=== PATIENT | male | born 1955 | race Caucasian/White ===

== ENCOUNTER 2017-11-26 14:01 | Inpatient (IN) | payer MEDICARE, BC ==
[2017-11-26 15:17] LABS: POTASSIUM 4.6 mmol/L (3.5-5.1)
[2017-11-26] MEDS ORDERED: PROPOFOL 20 ML (17:33)
[2017-11-26] MEDS ORDERED: LIDOCAINE 2% (SDV) 5 ML INJ (17:33)
[2017-11-26] MEDS ORDERED: LIDOCAINE 2% (MDV) 20 ML INJ (17:34)
[2017-11-26] MEDS ORDERED: POLYMYXIN/BACITRACIN 1L IRRIG (17:34)
[2017-11-26] MEDS ORDERED: CEFAZOLIN 1 GM INJ (18:03)
[2017-11-26] MEDS: BUPIVACAINE 0.5% (SDV) 30 ML INJ (18:17)
[2017-11-26 19:24] LABS: HEMATOCRIT 30.1 % (42.0-52.0); HEMOGLOBIN 9.6 g/dl (14.0-18.0)
[2017-11-26] MEDS ORDERED: EPHEDrine SULFATE 50 MG/5 ML SYG IV (19:30)
[2017-11-26] MEDS ORDERED: FENTAnyl 50 MCG/ML VIAL IV ×3 (19:30)
[2017-11-26] MEDS ORDERED: ONDANSETRON 4 MG INJ IV ×2 (19:30→21:00)
[2017-11-26] MEDS ORDERED: MEPERIDINE 25 MG INJ IV (19:30)
[2017-11-26] MEDS ORDERED: LABETALOL HCL 20MG INJ IV (19:30)
[2017-11-26] MEDS ORDERED: DIPHENHYDRAMINE 50 MG INJ IV (19:30)
[2017-11-26] MEDS ORDERED: MIDAZOLAM 1 MG/ML 2 ML INJ IV (19:30)
[2017-11-26] MEDS ORDERED: OXYCODONE/ACETAMINOPHEN (5/325) TAB PO ×2 (19:30)
[2017-11-26] MEDS ORDERED: METOCLOPRAMIDE 10 MG INJ IV (19:30)
[2017-11-26] MEDS: hydrALAzine 20 MG INJ IV (20:09)
[2017-11-26] MEDS ORDERED: HYDROCODONE/APAP (10/325) TAB PO (20:30)
[2017-11-26] MEDS ORDERED: ACETAMINOPHEN 325 MG TAB PO (21:00)
[2017-11-26] MEDS ORDERED: HYDROCODONE/APAP (5/325) TAB PO (21:00)
[2017-11-26] MEDS ORDERED: NACL 0.9% 3 ML SYG IV (21:00)
[2017-11-26] MEDS ORDERED: BISACODYL (EC) 5 MG TAB PO (21:00)
[2017-11-26] MEDS ORDERED: morphine 2 MG INJ IV (21:00)
[2017-11-26] MEDS ORDERED: DOCUSATE SODIUM 100 MG CAP PO (21:00)
[2017-11-26] MEDS ORDERED: GLUCAGON 1 MG INJ IM (22:30)
[2017-11-26] MEDS ORDERED: GLUCOSE GEL 15 GRAM TUBE BUCCAL (22:30)
[2017-11-26] MEDS ORDERED: DEXTROSE 50% 50 ML SYRINGE IV ×2 (22:30)
[2017-11-26] MEDS ORDERED: GLUCOSE GEL 15 GRAM TUBE PO ×2 (22:30)
[2017-11-27] MEDS: ZOLPIDEM 5 MG TAB PO ×2 (01:05→02:18)
[2017-11-27] MEDS ORDERED: hydrALAzine 20 MG INJ IV (01:30)
[2017-11-27] MEDS: ACCU-CHEK XX (01:30)
[2017-11-27 06:17] LABS: ADD MAN DIFF? NO
[2017-11-27 06:23] LABS: WHITE BLOOD COUNT 6.4 10^3/ul (4.8-10.8)
[2017-11-27 06:23] LABS: BASOPHILS % 0.5 % (0.0-2.0); EOSINOPHILS % 0.5 % (0.0-7.0); HEMATOCRIT 30.7 % (42.0-52.0); HEMOGLOBIN 9.8 g/dl (14.0-18.0); LYMPHOCYTES # 0.9 10^3/ul (0.8-2.9); LYMPHOCYTES % 14.2 % (15.0-51.0); MEAN CORPUSCULAR HEMOGLOBIN 31.8 pg (29.0-33.0); MEAN CORPUSCULAR HGB CONC 31.9 g/dl (32.0-37.0); MEAN CORPUSCULAR VOLUME 99.7 fl (82.0-101.0); MEAN PLATELET VOLUME 10.5 fl (7.4-10.4); MONOCYTE # 0.5 10^3/ul (0.3-0.9); MONOCYTES % 7.5 % (0.0-11.0); NEUTROPHIL # 4.9 10^3/ul (1.6-7.5); NUCLEATED RED BLOOD CELLS% 0.3 /100WBC (0.0-0.0); PLATELET COUNT 155 10^3/UL (140-415); RED BLOOD COUNT 3.08 10^6/ul (4.70-6.10); RED CELL DISTRIBUTION WIDTH 14.7 % (11.5-14.5)
[2017-11-27 06:47] LABS: ALBUMIN 4.4 g/dl (3.3-4.9); ALBUMIN/GLOBULIN RATIO 1.41; ALKALINE PHOSPHATASE 176 IU/L (42-121); ANION GAP 17 (8-16); ASPARTATE AMINO TRANSFERASE 81 IU/L (15-46); BILIRUBIN,INDIRECT 0.2 mg/dl (0-1.1); BILIRUBIN,TOTAL 0.2 mg/dl (0.2-1.3); BLOOD UREA NITROGEN 59 mg/dl (7-20); CALCIUM 9.6 mg/dl (8.4-10.2); CARBON DIOXIDE 26 mmol/L (21-31); CHLORIDE 104 mmol/L (97-110); CHOL/HDL RATIO 2.7 RATIO; CHOLESTEROL 133 mg/dl (100-200); CREATININE 6.98 mg/dl (0.61-1.24); GLUCOSE 209 mg/dl (70-220); HDL CHOLESTEROL 48 mg/dl (30-78); LDL CHOLESTEROL,CALCULATED 59 mg/dl; MAGNESIUM 2.9 mg/dl (1.7-2.5); POTASSIUM 5.1 mmol/L (3.5-5.1); SODIUM 142 mmol/L (135-144); TOTAL PROTEIN 7.5 g/dl (6.1-8.1); TRIGLYCERIDES 129 mg/dl (0-149)
[2017-11-27 06:54] LABS: ALANINE AMINOTRANSFERASE < 6 IU/L (13-69)
[2017-11-27] MEDS: INSULIN ASPART [NOVOLOG] 3 ML PEN SC ×2 (07:39→11:53)
[2017-11-27 12:56] LABS: HEMOGLOBIN A1C 5.3 % (0-5.9)
== END 2017-11-27 16:40 | disposition home or self-care (01) | DRG 617 ==
LOC: SDS 14:01 → MS2 21:25
PROVIDERS: Podiatrist Foot & Ankle Surgery
PROC: 0Y6M0Z9 Detachment at Right Foot, Partial 1st Ray, Open Approach (ICD-10-PCS; principal; 2017-11-26 16:00)
PROC: 0Y6M0ZB Detachment at Right Foot, Partial 2nd Ray, Open Approach (ICD-10-PCS; 2017-11-26 16:00)
PROC: 0Y6M0ZC Detachment at Right Foot, Partial 3rd Ray, Open Approach (ICD-10-PCS; 2017-11-26 16:00)
PROC: 0Y6M0ZD Detachment at Right Foot, Partial 4th Ray, Open Approach (ICD-10-PCS; 2017-11-26 16:00)
PROC: 0Y6M0ZF Detachment at Right Foot, Partial 5th Ray, Open Approach (ICD-10-PCS; 2017-11-26 16:00)
DX: E11.69 Type 2 diabetes mellitus with other specified complication (principal); M86.671 Other chronic osteomyelitis, right ankle and foot; I12.0 Hypertensive chronic kidney disease with stage 5 chronic kidney disease or end stage renal disease; T81.89XA Other complications of procedures, not elsewhere classified, initial encounter; Y83.8 Other surgical procedures as the cause of abnormal reaction of the patient, or of later complication, without mention of misadventure at the time of the procedure; E11.42 Type 2 diabetes mellitus with diabetic polyneuropathy; E11.51 Type 2 diabetes mellitus with diabetic peripheral angiopathy without gangrene; E11.22 Type 2 diabetes mellitus with diabetic chronic kidney disease; N18.6 End stage renal disease; Z99.2 Dependence on renal dialysis
CPT/HCPCS: 73630; 80053; 80061; 82962; 83036; 83735; 84132; 84443; 85014; 85018; 85025; 88304; 88311